=== PATIENT | male | born 1940 | race Caucasian/White ===

== ENCOUNTER 2018-06-11 17:37 | Observation (INO) | payer OTHER ==
[~2018-06-11] VITALS: Ht 190.5 cm; Wt 84.0 kg
--- OUTSIDE RECORDS SUMMARY | 2018-06-11 17:47 | XMS REPORT | Summary of Care ---
Author Author [facility] Organization [facility] Address Unknown Phone Unavailable Encounter HQ [place](FIN) [id number] Date(s): 03/25/17 - 03/25/17 [facility] [address] [place] [address]- Discharge Disposition: Home or Self Care Attending Physician: Justin Rader MD Referring Physician: Justin Rader MD Vital Signs No data available for this section Problem List No data available for this section Allergies, Adverse Reactions, Alerts Substance Reaction Severity Status NKDA Active Medications Omnipaque 300 10 mL, Route: MISC, Drug Form: SOLN, ONCE, Start date: 03/25/17 9:19:00 CDT, Sto p date: 03/25/17 9:19:00 CDT Notes: (Same as:Omnipaque 300).WASTE: F/P - Black; E - Municipal Trash Bin Start Date: 03/25/17 Stop Date: 03/25/17 Status: Completed Results No data available for this section Immunizations No data available for this section Procedures No data available for this section Social History Social History Type Response Smoking Status Never smoker; Exposure to Tobacco Smoke None; Cigarette Smoking Last 365 Days No; Reg Smoking Cessation Counseling No Assessment and Plan No data available for this section
--- OUTSIDE RECORDS SUMMARY | 2018-06-11 17:47 | XMS REPORT | Summary of Care ---
Author Author [facility] Neurosurgery [facility] Organization [facility] Neurosurgery [facility] Address Unknown Phone Unavailable Encounter HQ Kathleen(FIN) [id number] Date(s): 06/17/17 - 06/18/17 [facility] Neurosurgery [facility] [address], [address] [place] [address] [phone] Vital Signs No data available for this section Problem List Condition Effective Dates Status Health Status Informant Acute Resolved angina(Confirmed) BCC (basal cell Resolved carcinoma), ear(Confirmed) CAD (coronary artery Active disease)(Confirmed) Disorder of urinary Active tract(Confirmed) Gout(Confirmed) Active H/O Active hyperlipidemia(Confi rmed) Irregular heart Resolved beat(Confirmed) Numbness of upper Active limb(Confirmed) Incomplete rotator Resolved cuff tear(Confirmed) Cervical stenosis of Active spine(Confirmed) Allergies, Adverse Reactions, Alerts Substance Reaction Severity Status erythromycin Active Medications No data available for this section Results No data available for this section Immunizations No data available for this section Procedures Procedure Date Related Diagnosis Body Site Angioplasty1 Arthroscopy of knee Myelogram Pacemaker care Rotator cuff repair 1with 1 stent Social History Social History Type Response Smoking Status Never smoker; Exposure to Tobacco Smoke None; Cigarette Smoking Last 365 Days No; Reg Smoking Cessation Counseling No Assessment and Plan No data available for this section
--- OUTSIDE RECORDS SUMMARY | 2018-06-11 17:47 | XMS REPORT | Summary of Care ---
Author Author [facility] Neurosurgery [facility] Organization [facility] Neurosurgery [facility] Address Unknown Phone Unavailable Encounter HQ Kathleen(EULALIO) [phone] Date(s): 06/17/17 - 06/17/17 [facility]surgery [facility] [address], [address] [place] [phone] Discharge Disposition: Home or Self Care Attending Physician: Justin Rader MD Vital Signs No [...] Substance Reaction Severity Status erythromycin Active Medications tramadol 100 mg oral tablet, extended release 100 mg=1 tab, PO, QPM, # 30 tab, 1 Refill(s), called to pharmacy Start Date: 06/17/17 Status: Ordered Results No data available for this section [...]
--- OUTSIDE RECORDS SUMMARY | 2018-06-11 17:47 | XMS REPORT | Summary of Care ---
Author Author [facility] Organization [facility] Neurosurgery [facility] Address Unknown Phone Unavailable Encounter HQ Kathleen(EULALIO) [phone] Date(s): 08/28/17 - 08/28/17 [facility] Neurosurgery [facility] [address], [address] [place] [phone] Discharge Disposition: Home or Self Care Attending Physician: Mariposa Montiel MD Referring Physician: Justin Rader MD Vital Signs Most recent to 1 oldest [Reference Range]: Height 182.88 cm (08/30/17 3:49 PM) Blood Pressure 122/76 mmHg [90-140/60-90 mmHg] (08/30/17 3:49 PM) Peripheral Pulse 60 bpm Rate [60-100 bpm] (08/30/17 3:49 PM) Weight 95.455 kg (08/30/17 3:49 PM) Body Mass Index 28.54 m2 (08/30/17 3:49 PM) Problem List Condition Effective Dates Status Health [...] Reaction Severity Status erythromycin Active Medications No Known Medications Results No data available for this section Immunizations No data available for this section Procedures Procedure Date Related Diagnosis Body Site Status Angioplasty1 Completed Arthroscopy of knee Completed Myelogram Completed Pacemaker care Completed Rotator cuff repair Completed 1with 1 stent Social History Social History Type Response Smoking Status Never smoker; Exposure to Tobacco Smoke None; Cigarette Smoking Last 365 Days No; Reg Smoking Cessation Counseling No entered on: 08/30/17 Assessment and Plan No data available for this section
--- OUTSIDE RECORDS SUMMARY | 2018-06-11 17:47 | XMS REPORT | Summary of Care ---
Author Author [facility] Organization [facility] Address Unknown Phone Unavailable Encounter LANCE Wang(EULALIO) [id number] Date(s): 05/07/17 - 05/07/17 [facility] [address] [place] [address]- [phone] Discharge Disposition: Home or Self Care Attending Physician: Mariposa Montiel MD Admitting Physician: Mariposa Montiel MD Referring Physician: Mariposa Montiel MD Vital Signs 1 2 3 Most recent to oldest [Reference Range]: 190.5 cm (05/06/17 3:26 PM) Height 138/86 mmHg (05/07/17 11:30 AM) 131/80 mmHg (05/07/17 11:00 AM) 123/83 mmHg (05/07/17 9:15 AM) Blood Pressure [90-140/60-90 mmHg] 18 BRMIN (05/07/17 11:30 AM) 18 BRMIN (05/07/17 11:00 AM) 18 BRMIN (05/07/17 9:15 AM) Respiratory Rate [14-20 BRMIN] 95 kg (05/06/17 3:26 PM) Weight 26.18 m2 (05/06/17 3:26 PM) Body Mass Index Problem List Condition Effective Dates Status Health [...] Substance Reaction Severity Status erythromycin Active Medications allopurinol 300 mg oral tablet 300 mg=1 tab, PO, Daily, # 30 tab, 0 Refill(s) Start Date: 05/06/17 Status: Ordered Lactated Ringers Injection IV 1000 mL 1,000 mL, Rate: 25 ml/hr, Infuse over: 40 hr, Route: IV, Dosing Weight 95 kg, To kacy Volume: 1,000, Start date: 05/07/17 9:22:00 CDT, Duration: 30 day, 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 date : 06/06/17 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: 05/07/17 Stop Date: 05/07/17 Status: Discontinued Lipitor 10 mg oral tablet 10 mg=1 tab, PO, Bedtime, # 30 tab, 0 Refill(s) Start Date: 05/06/17 Status: Ordered LR 1000 mL INJ (ANES) Route: IV, Total Volume: 1,000, Start date: 05/07/17 10:44:00 CDT, Stop date: 11:44:00 CDT Start Date: 05/07/17 Stop Date: 05/07/17 Status: Completed tamsulosin 0.4 mg oral capsule 0.4 mg=1 cap, PO, Daily, # 30 cap, 0 Refill(s) Start Date: 05/06/17 Status: Ordered Results ELECTROLYTES Most recent to 1 oldest [Reference Range]: Sodium Lvl [135-145 140 mEq/L mEq/L] (05/07/17 8:43 AM) Potassium Lvl 4.2 mEq/L [3.5-5.1 mEq/L] (05/07/17 8:43 AM) Chloride Lvl [95-109 106 mEq/L mEq/L] (05/07/17 8:43 AM) CO2 [24-32 mEq/L] 25 mEq/L (05/07/17 8:43 AM) AGAP [10.0-20.0 13.2 mEq/L mEq/L] (05/07/17 8:43 AM) CHEM PANEL Most recent to 1 oldest [Reference Range]: Creatinine Lvl 1.30 mg/dL [0.50-1.40 mg/dL] (05/07/17 8:43 AM) eGFR 52 mL/min/1.73m2 1 *NA* (05/07/17 8:43 AM) BUN [7-22 mg/dL] 17 mg/dL (05/07/17 8:43 AM) Glucose Lvl [70-99 98 mg/dL mg/dL] (05/07/17 8:43 AM) Calcium Lvl 9.3 mg/dL [8.5-10.5 mg/dL] (05/07/17 8:43 AM) 1Result Comment: The eGFR is calculated using the CKD-EPI formula. In most young, healthy individuals the eGFR will be >90 mL/min/1.73m2. The eGFR declines with age. An eGFR of 60-89 may be normal in some populations, particularly the elderly, for whom the CKD-EPI formula has not been extensively validated. Use of the eGFR is not recommended in the following populations: Individuals with unstable creatinine concentrations, including patients and those with serious co-morbid conditions. Patients with extremes in muscle mass or diet. The data above are obtained from the National Kidney Disease Education Program ( NKDEP) which additionally recommends that when the eGFR is used in patients with extremes of body mass index for purposes of drug dosing, the eGFR should be mul tiplied by the estimated BMI. HEMATOLOGY Most recent to 1 oldest [Reference Range]: WBC [3.7-10.4 K/CMM] 6.6 K/CMM (05/07/17 8:43 AM) RBC [4.70-6.10 4.94 M/CMM M/CMM] (05/07/17 8:43 AM) Hgb [14.0-18.0 g/dL] 16.8 g/dL (05/07/17 8:43 AM) Hct [42.0-54.0 %] 48.2 % (05/07/17 8:43 AM) MCV [80.0-94.0 fL] 97.6 fL *HI* (05/07/17 8:43 AM) MCH [27.0-31.0 pg] 34.0 pg *HI* (05/07/17 8:43 AM) MCHC [32.0-36.0 34.8 g/dL g/dL] (05/07/17 8:43 AM) RDW [11.5-14.5 %] 13.7 % (05/07/17 8:43 AM) Platelet [133-450 219 K/CMM K/CMM] (05/07/17 8:43 AM) MPV [7.4-10.4 fL] 7.1 fL *LOW* (05/07/17 8:43 AM) Segs [45.0-75.0 %] 60.5 % (05/07/17 8:43 AM) Lymphocytes 24.7 % [20.0-40.0 %] (05/07/17 8:43 AM) Monocytes [2.0-12.0 8.5 % %] (05/07/17 8:43 AM) Eosinophils [0.0-4.0 4.8 % %] *HI* (05/07/17 8:43 AM) Basophils [0.0-1.0 1.5 % %] *HI* (05/07/17 8:43 AM) Segs-Bands # 4.0 K/CMM [1.5-8.1 K/CMM] (05/07/17 8:43 AM) Lymphocytes # 1.6 K/CMM [1.0-5.5 K/CMM] (05/07/17 8:43 AM) Monocytes # [0.0-0.8 0.6 K/CMM K/CMM] (05/07/17 8:43 AM) Eosinophils # 0.3 K/CMM [0.0-0.5 K/CMM] (05/07/17 8:43 AM) Basophils # [0.0-0.2 0.1 K/CMM K/CMM] (05/07/17 8:43 AM) PT [12.0-14.7 12.8 seconds seconds] (05/07/17 8:43 AM) INR [0.85-1.17] 0.96 (05/07/17 8:43 AM) PTT [22.9-35.8 27.2 seconds seconds] (05/07/17 8:43 AM) Immunizations No data available for this section Procedures Procedure Date Related Diagnosis Body Site NJX INTERLAMINAR CRV/THR 05/07/17 Angioplasty1 Arthroscopy of knee Myelogram Pacemaker care Rotator cuff repair 1with 1 stent Social History Social History Type Response Smoking Status Never smoker; Exposure to Tobacco Smoke None; Cigarette Smoking Last 365 Days No; Reg Smoking Cessation Counseling No Assessment and Plan No data available for this section
--- OUTSIDE RECORDS SUMMARY | 2018-06-11 17:48 | XMS REPORT | Summary of Care ---
Author Author [facility] Neurosurgery [facility] Organization [facility] Neurosurgery [facility] Address Unknown Phone Unavailable Encounter HQ [place](FIN) [id number] Date(s): 08/07/17 - 08/08/17 [facility] Neurosurgery [facility] [address], [address] [place] [phone] Vital Signs No data available for this [...]
--- OUTSIDE RECORDS SUMMARY | 2018-06-11 18:06 | XMS REPORT | Continuity of Care Document ---
Author Author [facility] Address Unknown Phone Unavailable Problems Problem Status Onset Date Classification Date Reported Comments Source M54.12 Active 05/03/2017 [facility] UNK Active 05/03/2017 [facility] M47.812 M54.12 Active 03/20/2017 [facility] Acute angina Resolved Problem 12/04/2017 [facility] BCC , ear(<span ID="[id number]">Confirmed</span>) Resolved Problem 12/04/2017 [facility] CAD (<span ID="[id number]">Confirmed</span>) [facility] Disorder of urinary tract Active Problem 12/04/2017 [facility] Gout Active Problem 12/04/2017 [facility] H/O hyperlipidemia Active Problem 12/04/2017 [facility] Irregular heart beat Resolved Problem 12/04/2017 [facility] Numbness of upper limb Active [facility]/04[facility] Incomplete rotator cuff tear Resolved [facility]04[facility] Cervical stenosis of spine Active Problem [facility]/04[facility]2017 [facility] Medications Medication Details Route Status Patient Instructions Ordering Provider Order Date Source 24 HR tramadol hydrochloride 100 MG Extended Release Tablet 100 mg=1 tab, PO, QPM, # 30 tab, 1 Refill(s), called to pharmacy Active 06/17/2017 [facility] LR 1000 mL INJ (ANES) Route: IV, Total Volume: 1,000, Start date: 05/07/17 10:44:00 CDT, Stop date: 05/07/17 11:44:00 CDT Inactive 05/07/2017 [facility] Calcium Chloride 0.0014 MEQ/ML / Potassium Chloride 0.004 MEQ/ML / Sodium Chloride 0.103 MEQ/ML / Sodium Lactate 0.028 MEQ/ML Injectable Solution 1,000 mL, Rate: 25 ml/hr, Infuse over: 40 hr, Route: IV, Dosing Weight 95 kg, Total Volume: 1,000, Start date: 05/07/17 9:22:00 CDT, Duration: 30 day, Stop date: 06/06/17 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 WASTE: F/P - Black; E - Municipal Trash Bin Inactive 03/25/2017 [facility] Allergies, Adverse Reactions, Alerts Substance Category Reaction Severity Reaction type Status Date Reported Comments Source erythromycin Assertion Drug allergy Active [facility] Immunizations Immunization Date Given Site Status Last Updated Comments Source Results Order Name Results Value Reference Range Date Interpretation Comments Source CHEM PANEL eGFR 52 mL/min/1.73m2 05/07/2017 Result Comment: The eGFR is calculated using the [...] from the National Kidney Disease Education Program (NKDEP) which additionally recommends that when the eGFR is used in patients with extremes of body mass index for purposes of drug dosing, the eGFR should be multiplied by the estimated BMI. [facility] CHEM PANEL Glucose Lvl 98 mg/dL 70 - 99 05/07/2017 [facility]M PANEL Sodium Lvl 140 meq/L 135 - 145 05/07/2017 [facility] CHEM PANEL Potassium Lvl 4.2 meq/L 3.5 - 5.1 05/07/2017 [facility] CHEM PANEL BUN 17 mg/dL 7 - 22 05/07/2017 [facility] CHEM PANEL Creatinine Lvl 1.30 mg/dL 0.50 - 1.40 05/07/2017 [facility] CHEM PANEL Calcium Lvl 9.3 mg/dL 8.5 - 10.5 05/07/2017 [facility] CHEM PANEL Chloride Lvl 106 meq/L 95 - 109 05/07/2017 [facility] CHEM PANEL CO2 25 meq/L 24 - 32 05/07/2017 [facility] CHEM PANEL AGAP 13.2 meq/L 10.0 - 20.0 05/07/2017 [facility] HEMATOLOGY MPV 7.1 fL 7.4 - 10.4 05/07/2017 [facility] HEMATOLOGY RDW 13.7 % 11.5 - 14.5 05/07/2017 [facility] HEMATOLOGY Platelet 219 K/CMM 133 - 450 05/07/2017 [facility] HEMATOLOGY RBC 4.94 M/CMM 4.70 - 6.10 05/07/2017 [facility] HEMATOLOGY Hgb 16.8 g/dL 14.0 - 18.0 05/07/2017 [facility] MCH 34.0 pg 27.0 - 31.0 05/07/2017 [facility] HEMATOLOGY MCHC 34.8 g/dL 32.0 - 36.0 05/07/2017 [facility] HEMATOLOGY Hct 48.2 % 42.0 - 54.0 05/07/2017 [facility] HEMATOLOGY MCV 97.6 fL 80.0 - 94.0 05/07/2017 [facility] HEMATOLOGY WBC 6.6 K/CMM 3.7 - 10.4 05/07/2017 [facility] HEMATOLOGY INR 0.96 0.85 - 1.17 05/07/2017 [facility] HEMATOLOGY PT 12.8 s 12.0 - 14.7 05/07/2017 [facility] HEMATOLOGY PTT 27.2 s 22.9 - 35.8 05/07/2017 [facility] HEMATOLOGY Lymphocytes # 1.6 K/CMM 1.0 - 5.5 05/07/2017 [facility] HEMATOLOGY Segs-Bands # 4.0 K/CMM 1.5 - 8.1 05/07/2017 [facility] HEMATOLOGY Basophils # 0.1 K/CMM 0.0 - 0.2 05/07/2017 [facility] HEMATOLOGY Monocytes # 0.6 K/CMM 0.0 - 0.8 05/07/2017 [facility] HEMATOLOGY Eosinophils # 0.3 K/CMM 0.0 - 0.5 05/07/2017 [facility] Monocytes 8.5 % 2.0 - 12.0 05/07/2017 [facility] HEMATOLOGY Eosinophils 4.8 % 0.0 - 4.0 05/07/2017 [facility] Basophils 1.5 % 0.0 - 1.0 05/07/2017 [facility] HEMATOLOGY Segs 60.5 % 45.0 - 75.0 05/07/2017 [facility] Lymphocytes 24.7 % 20.0 - 40.0 05/07/2017 [facility] Spine cervical myelogram CT Spine cervical myelogram CT Patient Name: VINCENT THOMAS : 1940; Age: 76 years Male MR: [id number] Study: Spine cervical myelogram CT 03/25/2017 9:10 AM CDT Clinical Indication: ct dlp 423 mGycm - Cervical radiculopathy; cervical spondylosis. COMPARISON: None TECHNIQUE: Multiplanar imaging of the cervical spine is performed post myelographic technique. FINDINGS: ALIGNMENT AND GENERAL ASSESSMENT: There is normal alignment of the cervical spine. The prevertebral soft tissues, atlanto-dental interspace and craniocervical junction are within normal limits. The posterior paraspinal soft tissues are normal. There is disc height loss greatest at C3-C7. Multiple posterior disc osteophyte complex. DISC SPACES: C2-C3: The disc is normal. There is no central stenosis. There is no foraminal stenosis. The facet joints are normal. C3-C4: Disc osteophyte complex. Moderate spinal stenosis. Severe left foraminal stenosis. Mild bilateral facet arthritic change. C4-C5: Disc osteophyte complex. Mild spinal stenosis. Severe left, moderate right foraminal stenosis. Mild facet arthritic change bilaterally. C5-C6: Small disc osteophyte complex. There is mild spinal stenosis. Severe bilateral foraminal stenosis. Mild facet arthritic change bilaterally. C6-C7: Small disc osteophyte complex. There is no central stenosis. Mild bilateral foraminal stenosis. Minimal facet arthritic change bilaterally. C7-T1: The disc is normal. There is no central stenosis. There is no foraminal stenosis. The facet joints are normal. IMPRESSION: 1. C3-C4 moderate spinal stenosis with severe left foraminal stenosis. 2. C4-C5 mild spinal stenosis with severe left and moderate right foraminal stenosis. 3. C5-C6 mild central stenosis with severe bilateral foraminal stenosis. 4. Multilevel disc osteophytes with facet arthritic change as described above. SL: [id number] 03/25/2017 - - Read by: Lew Owen MD Dictated Date/time: 03/25/17 10:55 Electronically Signed by: Lew Owen MD 03/25/17 11:11 FINAL REPORT [facility] Spine cervical myelogram DX Spine cervical myelogram DX Addendum: The correct fluoro time is 1 minute 58 seconds. Dose=60 mGy. Patient Name: VINCENT THOMAS : 1940; Age: 76 years y/o Male MR: [id number] Study: Spine cervical myelogram DX 03/25/2017 9:11 AM CDT Clinical Indication: - M54.12 Radiculopathy, cervical region, M47.812 Spondylosis without myelopathy or radiculopathy, cervical region. COMPARISON: None. EXAM: Lumbar Puncture, flouroscopic guidance CONSENT: The patient denied any drug allergies. The patient denied intake of any blood thinners, including Plavix and warfarin. The risks and benefits of the procedure, the risk of doing nothing, as well as alternative therapies were explained to the patient. The patient was then allowed to ask questions. The patient stated understanding and agreed to proceed. It is my judgment the patient does understand the treatment plan. FLUOROSCOPY TIME: 33 seconds TECHNIQUE AND FINDINGS: Time out procedure was performed. The lower back was prepped and draped in sterile fashion with the patient in prone position. Under fluoroscopic guidance a 22 gauge Quincke tip needle was advanced into the thecal sac at the L3-L4 interspace. 10 mL of Omnipaque 300 was injected at this point. The patient was put in a headdown position to help migrate the contrast to the cervical level. COMPLICATION: None. SL: [id number] 03/25/2017 - - Read by: Lew Owen MD Dictated Date/time: 03/25/17 12:33 Electronically Signed by: Lew Owen MD 03/25/17 12:35 FINAL REPORT - - Read by: Lew Owen MD Dictated Date/time: 03/25/17 10:52 Electronically Signed by: Lew Owen MD 03/25/17 11:11 FINAL REPORT [facility] Vital Signs Vital Sign Value Date Comments Source BMI Calculated 28.54 08/30/2017 [facility] Weight 95.455 08/30/2017 [facility] Height 182.88 cm 08/30/2017 [facility] Heart Rate 60 08/30/2017 [facility] Systolic (mm Hg) 122 08/30/2017 [facility] Diastolic (mm Hg) 76 08/30/2017 [facility] Systolic (mm Hg) 138 05/07/2017 [facility] Diastolic (mm Hg) 86 05/07/2017 [facility] Respitory Rate 18 05/07/2017 [facility] Systolic (mm Hg) 131 05/07/2017 [facility] Diastolic (mm Hg) 80 05/07/2017 [facility] Respitory Rate 18 05/07/2017 [facility] Systolic (mm Hg) 123 05/07/2017 [facility] Diastolic (mm Hg) 83 05/07/2017 [facility] Respitory Rate 18 05/07/2017 [facility] BMI Calculated 26.18 05/06/2017 [facility] Weight 95 05/06/2017 [facility] Height 190.5 cm 05/06/2017 [facility] Encounters Location Location Details Encounter Type Encounter Number Reason For Visit Attending Provider ADM Date DC Date Status Source Outpatient [id number] [facility] 03/06/2017 Active [facility] Outpatient [id number] [facility] 03/25/2017 03/26/2017 [facility] Outpatient [id number] [facility] 04/16/2017 Active [facility] Outpatient [id number] CARLOS GONZALEZ 05/01/2017 Active [facility] Outpatient [id number] CARLOS GONZALEZ 05/07/2017 [facility] [id number] Carlos Gonzalez 05/07/2017 05/07/2017 [facility] Outpatient [id number] CARLOS GONZALEZ 05/20/2017 Active [facility] Outpatient [id number] CARLOS GONZALEZ 05/22/2017 Active [facility] Outpatient [id number] CARLOS GONZALEZ 06/17/2017 Active [facility] [id number] [facility] 06/17/2017 06/18/2017 [facility] Phone Message [id number] 06/17/2017 06/19/2017 [facility] Phone Message [id number] 08/07/2017 08/09/2017 [facility] Outpatient [id number] [facility] [id number] [facility] 08/28/2017 08/29/2017 [facility] Procedures Procedure Code Date Perfomer Comments Source NJX INTERLAMINAR CRV/THR 05/07/2017 [facility] Angioplasty<sup>1</sup> [id number] with 1 stent [facility] Arthroscopy of knee [id number] [facility] Myelogram [id number] [facility] Pacemaker care [id number] [facility] Rotator cuff repair [id number] [facility] Angioplasty<sup>1</sup> [id number] with 1 stent [facility] Arthroscopy of knee [id number] [facility] Myelogram [id number] [id number]
[2018-06-11] MEDS ORDERED: ALLOPURINOL300 MG PO (18:33)
[2018-06-11] MEDS ORDERED: ASPIR 8181 MG PO (18:33)
[2018-06-11] MEDS ORDERED: ATORVASTATIN CA20 MG PO (18:33)
[2018-06-11] MEDS ORDERED: METOPROLOL SUCC25 MG PO (18:33)
[2018-06-11] MEDS ORDERED: TAMSULOSIN HCL0.4 MG PO (18:33)
[2018-06-11 18:34] VITALS: BP 131/69
[2018-06-11 18:48] LABS: BASOPHILS # (AUTO) 0.1 (0.0-0.1); BASOPHILS % 1.2 % (0.0-1.0); EOSINOPHILS # (AUTO) 0.4 (0.0-0.4); EOSINOPHILS % 6.5 % (0.0-6.0); HEMATOCRIT 46.1 % (38.2-49.6); HEMOGLOBIN 15.7 g/dL (14.0-18.0); LYMPHOCYTES % 29.9 % (18.0-39.1); MEAN CORPUSCULAR HGB CONC 34.1 g/dL (31-35); MEAN CORPUSCULAR VOLUME 99.8 fL (81-99); MONOCYTES # (AUTO) 0.6 (0.2-0.8); MONOCYTES % 9.1 % (4.4-11.3); NEUTROPHILS # (AUTO) 3.5 (2.1-6.9); NEUTROPHILS % 52.8 % (38.7-80.0); PLATELET COUNT 195 x10e3/uL (140-360); RED BLOOD COUNT 4.62 x10e6/uL (4.3-5.7); RED CELL DISTRIBUTION WIDTH 12.9 % (11.7-14.4)
[2018-06-11 19:00] LABS: INR 0.89; PROTHROMBIN TIME 12.9 seconds (11.9-14.5)
[2018-06-11 19:07] LABS: ANION GAP 10.7 mmol/L (8-16); BLOOD UREA NITROGEN 23 mg/dL (7-26); BUN/CREATININE RATIO 20 (6-25); CALCIUM 9.5 mg/dL (8.4-10.2); CARBON DIOXIDE 24 mmol/L (22-29); CHLORIDE 105 mmol/L (98-107); CREATININE, SERUM 1.14 mg/dL (0.72-1.25); EST GLOMERULAR FILTRATION RATE > 60 ML/MIN (60-); GLUCOSE 104 mg/dL (74-118); POTASSIUM 3.7 mmol/L (3.5-5.1); SODIUM 136 mmol/L (136-145)
[2018-06-11 19:09] LABS: PARTIAL THROMBOPLASTIN TIME 26.7 seconds (23.8-35.5)
[2018-06-11 20:00] VITALS: BP 124/68
[2018-06-11] MEDS: ATORVASTATIN 20 MG TAB PO SCH (20:00)
[2018-06-11] MEDS: TAMSULOSIN HCL 0.4 MG CAP PO SCH (20:00)
[2018-06-12] VITALS (9 sets, daily range): BP systolic 108–123; BP diastolic 56–71
[2018-06-12] MEDS: ALLOPURINOL 300 MG TAB PO SCH (09:00)
[2018-06-12] MEDS: ASPIRIN 81 MG CHEW TAB PO SCH ×2 (09:00→18:42)
[2018-06-12] MEDS: METOPROLOL SUCCINATE 25 MG TAB XL PO SCH (09:00)
--- NOTE | 2018-06-12 13:58 | History and Physical ---
CARDIOLOGY HISTORY AND PHYSICAL REASON FOR ADMISSION: Implantable cardioverter defibrillator upgrade. HISTORY OF PRESENT ILLNESS: This is a 77-year-old man with a prior history of nonischemic cardiomyopathy with ejection fraction of 40%, complete heart block, status post pacemaker implantation with prior episodes of pacemaker mediated tachycardia and desynchrony, coronary artery disease, status post prior percutaneous coronary intervention with a recent angiography performed in [place], which showed no obstructive disease. The patient reports progressively worsening shortness of breath associated with severe fatigue, moderate intensity associated with some occasional dizziness. The patient was admitted electively for pacemaker upgrade. REVIEW OF SYSTEMS: A 12-point review of systems was conducted and described above in HPI. PAST MEDICAL HISTORY: Nonischemic cardiomyopathy, chronic systolic congestive heart failure, complete heart block, status post pacemaker implantation, coronary artery disease, status post percutaneous coronary intervention, hypertension, hyperlipidemia. PAST SURGICAL HISTORY: Pacemaker, percutaneous coronary intervention. FAMILY HISTORY: No premature coronary artery disease or sudden cardiac . SOCIAL HISTORY: No illicit drug use, alcohol use or tobacco use. ALLERGIES: ERYTHROMYCIN. MEDICATIONS: See medication reconciliation form. PHYSICAL EXAMINATION VITALS: Temperature is 96.8, heart rate is 60, respirations are 20, blood pressure is 116/70, oxygen saturation 96% on room air. GENERAL: Well-appearing, well-built and in no apparent distress. LUNGS: Clear to auscultation. ABDOMEN: Soft and nontender. CARDIOVASCULAR: Regular rate and rhythm. No murmurs. NEUROLOGIC: No focal deficits noted. SKIN: Warm, dry and intact. PSYCHIATRIC: Normal mood and affect. HEENT: Head is normocephalic and atraumatic. Oropharynx clear. Mucous membranes are moist. LABORATORY DATA: Reviewed. IMAGING DATA: None. MEDICATIONS: Reviewed. IMPRESSION 1. Mvugu-re-nwppufx systolic congestive heart failure: Will add low-dose lisinopril. Continue long-acting metoprolol. The patient will go to an upgrade for cardiac resynchronization. 2. Hypertension: The patient's blood pressure is well controlled on current regimen. 3. Percutaneous coronary intervention and coronary artery disease: The patient has no symptoms of cardiac chest pain, and has recent cardiac catheterization with no obstructive disease. Job#: [id number] IA
[2018-06-12] MEDS ORDERED: MIDAZOLAM HCL 2 MG/2 ML VIAL ONE ×2 (16:57→18:30)
[2018-06-12] MEDS ORDERED: FENTANYL CITRATE/PF 100MCG/2 ML INJ ONE (16:58)
[2018-06-12] MEDS ORDERED: LIDOCAINE HCL 2% LOCAL 20 ML VIAL ONE (16:58)
[2018-06-12] MEDS ORDERED: BACITRACIN 50,000 UNIT VIAL ONE (16:58)
[2018-06-12] MEDS ORDERED: VANCOMYCIN 1GM/NS 250 ML 250 ML ONE (16:59)
[2018-06-12] MEDS ORDERED: SODIUM CHLORIDE 0.9% 1000ML 2,000 ML ONE (16:59)
[2018-06-12] MEDS ORDERED: SODIUM CHLORIDE 0.9% 500ML 500 ML ONE (16:59)
[2018-06-12] MEDS ORDERED: MORPHINE SULFATE 2 MG/ML SYR IV PRN (20:00)
[2018-06-12] MEDS: TAMSULOSIN HCL 0.4 MG CAP PO SCH (20:37)
[2018-06-12] MEDS: ATORVASTATIN 20 MG TAB PO SCH (20:37)
[2018-06-12] MEDS: ACETAMINOPHEN/CODEINE 300MG - 30MG TAB PO PRN (20:41)
--- NOTE | 2018-06-12 20:41 | Diagnostic Imaging Report ---
EXAMINATION: CHEST SINGLE (PORTABLE) INDICATION: ^POST BIVENTRICULAR PM PLACEMENT ^[id number] ^2004 ^Y COMPARISON: Left chest wall triple lead cardiac device in place. FINDINGS: AP view TUBES and LINES: None. LUNGS: Lungs are well inflated. Mild central vascular congestion. There is no evidence of pneumonia or pulmonary edema. PLEURA: No pleural effusion or pneumothorax. HEART AND MEDIASTINUM: The cardiomediastinal silhouette is unremarkable. Aorta is tortuous. BONES AND SOFT TISSUES: No acute osseous lesion. Soft tissues are unremarkable. UPPER ABDOMEN: No free air under the diaphragm. IMPRESSION: Status post triple lead left chest wall cardiac device placement. No visible pneumothorax. Mild central vascular congestion. Signed by: Dr. Subhash Bazzi MD on 06/12/2018 8:38 PM
[2018-06-13] VITALS: BP_SYST 101; BP_SYST 125; BP_DIAS 64; BP_DIAS 79
[2018-06-13 04:00] VITALS: BP 113/58
[2018-06-13] MEDS: ACETAMINOPHEN/CODEINE 300MG - 30MG TAB PO PRN (04:14)
[2018-06-13] MEDS ORDERED: ULTRAM 50MG50 MG PO (05:42)
[2018-06-13] MEDS ORDERED: MINOCYCLINE HCL50 MG PO (05:42)
[2018-06-13 08:00] VITALS: BP_SYST 111; BP_SYST 113; BP_DIAS 58; BP_DIAS 65
--- NOTE | 2018-06-13 08:16 | Consultation ---
DATE OF CONSULTATION: June 11, 2018 REASON FOR CONSULT: Cardiomyopathy. HISTORY OF PRESENT ILLNESS: This is a 77-year-old gentleman with history of complete heart block, status post dual-chamber pacemaker about 5 years ago. Patient was doing well up until 2 or 3 months ago when he started feeling short of breath with minimal activity. He is feeling tired and weak. He is pacemaker dependent. His ejection fraction has declined to 40%. He is congestive heart failure class 3. We are consulted to consider upgrading the device. REVIEW OF SYSTEMS: CONSTITUTIONAL: As per HPI. CARDIOVASCULAR: As per HPI. RESPIRATORY: Negative. GASTROINTESTINAL: Negative. MUSCULOSKELETAL: Negative. GENITOURINARY: Negative. NEUROLOGICAL: Negative. All other symptoms negative. PAST MEDICAL HISTORY: Cardiomyopathy, complete heart block. PAST SURGICAL HISTORY: Pacemaker. FAMILY HISTORY: No premature coronary artery disease. SOCIAL HISTORY: Denies alcohol or smoking. PHYSICAL EXAMINATION: VITAL SIGNS: Blood pressure 148/60, pulse 70, respiration 20, O2 sat is 98%. GENERAL: In no acute distress. HEENT: Moist mucous membranes. CARDIOVASCULAR: Regular. RESPIRATORY: Clear. ABDOMEN: Soft, nontender. MUSCULOSKELETAL: 2+ distal pulses. NEUROLOGICAL: No focal deficit. PSYCHIATRY: Normal thought process. EKG: Sinus, ventricular pacing. IMPRESSION: 1. 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 2. 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 3. Complete heart block. 4. 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 RECOMMENDATIONS: I had a long discussion with the patient. 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 This was discussed in detail, procedure benefits and risks. Patient voices understanding and wishes to proceed. Will plan for an upgrade to biventricular pacemaker placement. Job#: [id number]
--- NOTE | 2018-06-13 08:22 | Operative Report ---
DATE OF PROCEDURE: June 12, 2018 PREPROCEDURE DIAGNOSES 1. Chronic dilated cardiomyopathy with ejection fraction 40%. 2. Complete heart block, pacemaker dependent. 3. Presence of dual-chamber pacemaker. 4. Right ventricular pacing-induced cardiomyopathy. POSTPROCEDURE DIAGNOSES 1. Chronic dilated cardiomyopathy with ejection fraction 40%. 2. Complete heart block, pacemaker dependent. 3. Presence of dual-chamber pacemaker. 4. Right ventricular pacing-induced cardiomyopathy. ESTIMATED BLOOD LOSS: 5 mL. COMPLICATIONS: None. PROCEDURES PERFORMED 1. Upgrade to biventricular pacemaker. 2. Moderate sedation. Moderate conscious sedation was provided under my direct supervision by sedation-trained nurse. Sedation approximate time 30 minutes with Versed and fentanyl. There were no complications. DESCRIPTION OF PROCEDURE: After informed consent was obtained, the patient was brought to the electrophysiology laboratory in a fasting, nonsedated state. The area over his chest was prepped and draped in the usual sterile fashion. Moderate sedation and prophylactic antibiotic were given. One percent lidocaine was used as local anesthetic. A 3-cm skin incision was made over the previous pacemaker. Electrocautery and sharp and blunt dissection were used to reach the previous device. This device was freed out of the pocket. Vascular access was obtained times 1 in the left axillary vein using the modified Seldinger technique. A 9-Lithuanian sheath was placed. The coronary sinus was cannulated using AL2 catheter and Wholey wire. Coronary sinus angiogram demonstrated a good posterolateral branch. The lead was advanced there. Pacing threshold was 0.8 at 0.5, impedance 1000. The sheath was removed from the body. The lead was secured to the fascia using #0 silk. The pocket was irrigated with antibiotic solution using the pulse wall crane operator. Hemostasis was meticulous. Lead was connected to the device as well as the atrial and ventricular leads also connected to the new device. An entire new bi-V system was placed in the pocket. The incision was closed using Vicryl and Dermabond. The patient tolerated the procedure well. The procedure was deemed complete. SUMMARY OF HARDWARE IMPLANTED THIS TIME: The new pacemaker is [employer] model #U128, [id number]. The new left ventricular lead is [employer] 4674, [id number]. The chronic right atrial and right ventricular leads were used for this new device, and they were [employer]. IMPRESSION: Successful upgrade to biventricular pacemaker via left axillary vein. PLAN 1. Routine postop monitoring on telemetry bed. 2. Chest x-ray. 3. Follow up in 2 weeks. Job#: [id number]
[2018-06-13] MEDS: ASPIRIN 81 MG CHEW TAB PO SCH (08:39)
[2018-06-13] MEDS: METOPROLOL SUCCINATE 25 MG TAB XL PO SCH (08:39)
[2018-06-13] MEDS: ALLOPURINOL 300 MG TAB PO SCH (08:39)
[2018-06-13 11:57] VITALS: BP 132/74
[2018-06-13] MEDS ORDERED: ATORVASTATIN 40 MG TAB PO SCH (21:00)
== END 2018-06-13 13:10 | disposition home or self-care (01) ==
LOC: MED/SURG 17:44 → UNDOADMOB 17:44 → MED/SURG 18:03
PROVIDERS: ADMIT Internal Medicine Interventional Cardiology; ATTEND Internal Medicine Interventional Cardiology
DX: Z45.018 Encounter for adjustment and management of other part of cardiac pacemaker (principal); I11.0 Hypertensive heart disease with heart failure; I50.23 Acute on chronic systolic (congestive) heart failure; I25.10 Atherosclerotic heart disease of native coronary artery without angina pectoris; I44.2 Atrioventricular block, complete
CPT/HCPCS: 33208; 33225; 33233; 36415; 71045; 80048; 85025; 85610; 85730; C1769; C1887; C1900; C2621; G0378 ×3; J2001; J2250; J2270; J3370; J7030; J7040; 33224; 33229

== ENCOUNTER → 2018-11-24 | Day surgery (SDC) | payer OTHER ==
[~2018-11-24] VITALS: Ht 190.5 cm; Wt 95.3 kg
[~2018-11-24] MED LIST: ALLOPURINOL300 MG PO; ASPIR 8181 MG PO; ATORVASTATIN CA20 MG PO; FENTANYL CITRATE/PF 100MCG/2 ML INJ ONE; HEPARIN SOD/SOD CHLORIDE 2,000 ML ONE; IOPAMIDOL 370 MG/ML 200 ML INFUS..BTL INJ ONE; LIDOCAINE HCL 2% LOCAL 20 ML VIAL ONE; METOPROLOL SUCC25 MG PO; MIDAZOLAM HCL 2 MG/2 ML VIAL ONE; MINOCYCLINE HCL50 MG PO; SODIUM CHLORIDE 0.9% 1000ML 1,000 ML ONE; TAMSULOSIN HCL0.4 MG PO; ULTRAM 50MG50 MG PO
--- OUTSIDE RECORDS SUMMARY | 2018-11-24 10:13 | XMS REPORT ---
Author [facility] Address Unknown Phone Unavailable Care Team Providers Care Bench Repair Technician Name Role Phone ALBIN RINCON Unavailable Unavailable Problems This patient has no known problems. Allergies, Adverse Reactions, Alerts This patient has no known allergies or adverse reactions. Medications This patient has no known medications. Results Test Description Test Time Test Comments Text Results Atomic Results Result Comments CHEST SINGLE (PORTABLE) 2018-06-12 20:37:00 [place] [address] Patient Name: VINCENT THOMAS MR #: [id number] : 1940 Age/Sex: 77/M Req #: [id number] Adm Physician: ALBIN RINCON MD Ordered by: LISA SHAFER MD Report #: [id number] Location: MED/SURG Room/Bed: [facility] Procedure: [id number] DX/CHEST SINGLE (PORTABLE) Exam Date: 06/12/18 Exam Time: 2004 REPORT STATUS: Signed EXAMINATION: CHEST SINGLE (PORTABLE) INDICATION: POST BIVENTRICULAR PM PLACEMENT [id number] Y COMPARISON: Left chest wall triple lead cardiac device in place. FINDINGS: AP view TUBES and LINES: None. LUNGS: Lungs are well inflated. Mild central vascular congestion. There is no evidence of pneumonia or pulmonary edema. PLEURA: No pleural effusion or pneumothorax. HEART AND MEDIASTINUM: The cardiomediastinal silhouette is unremarkable. Aorta is tortuous. BONES AND SOFT TISSUES: No acute osseous lesion. Soft tissues are unremarkable. UPPER ABDOMEN: No free air under the diaphragm. IMPRESSION: Status post triple lead left chest wall cardiac device placement. No visible pneumothorax. Mild central vascular congestion. Signed by: Dr. Subhash Soliman MD on 06/12/2018 8:38 PM Dictated By: SUBHASH SOLIMAN MD 37 Transcribed By: JONNY on 06/12/182037 COPY TO: LISA SHAFER MD
[2018-11-24 10:48] VITALS: BP 124/80
[2018-11-24 11:05] LABS: BASOPHILS # (AUTO) 0.1 (0.0-0.1); EOSINOPHILS # (AUTO) 0.2 (0.0-0.4); EOSINOPHILS % 3.3 % (0.0-6.0); HEMATOCRIT 48.4 % (38.2-49.6); HEMOGLOBIN 16.1 g/dL (14.0-18.0); LYMPHOCYTES # (AUTO) 1.7 (1.0-3.2); LYMPHOCYTES % 27.9 % (18.0-39.1); MEAN CORPUSCULAR HEMOGLOBIN 33.2 pg (28-32); MEAN CORPUSCULAR HGB CONC 33.3 g/dL (31-35); MEAN CORPUSCULAR VOLUME 99.8 fL (81-99); MONOCYTES # (AUTO) 0.5 (0.2-0.8); NEUTROPHILS # (AUTO) 3.6 (2.1-6.9); NEUTROPHILS % 59.6 % (38.7-80.0); PLATELET COUNT 160 x10e3/uL (140-360); RED BLOOD COUNT 4.85 x10e6/uL (4.3-5.7); RED CELL DISTRIBUTION WIDTH 13.1 % (11.7-14.4)
[2018-11-24 11:18] LABS: INR 0.92; PROTHROMBIN TIME 12.8 seconds (11.9-14.5)
[2018-11-24 11:28] LABS: ALBUMIN 3.9 g/dL (3.5-5.0); ALBUMIN/GLOBULIN RATIO 1.4 (0.8-2.0); ANION GAP 12.2 mmol/L (8-16); CREATININE, SERUM 1.32 mg/dL (0.72-1.25); POTASSIUM 5.2 mmol/L (3.5-5.1)
[2018-11-24 13:05] VITALS: BP 117/67
[2018-11-24 13:20] VITALS: BP 111/63
[2018-11-24 13:35] VITALS: BP 103/64
[2018-11-24 13:50] VITALS: BP 101/67
[2018-11-24 14:06] VITALS: BP 107/62
--- NOTE | 2018-11-24 19:58 | Operative Report ---
DATE OF PROCEDURE: 11/24/2018 SURGEON: Kingston Morejon MD INDICATION: Coronary artery disease, abnormal stress test. PROCEDURES PERFORMED: 1. Left heart catheterization, selective coronary angiography. 2. Deployment of right wrist TR band. COMPLICATIONS: None. RECOMMENDATIONS: Medical therapy. DESCRIPTION OF PROCEDURE: Access obtained in the right radial artery. A 5-Sinhala sheath was placed. Diagnostic coronary angiogram revealed patent stent in the left anterior descending artery, diffuse 30% to 50% stenosis in all coronary vessels, ostial LAD 50%, mid RCA 50%. No intervention was deemed necessary. Right wrist guide and sheath were removed. TR band applied. The patient discharged home same day. Kingston Morejon MD KSB/MODL /[id number]
== END | disposition home or self-care (01) ==
LOC: CATH LAB 10:10
PROVIDERS: ATTEND Internal Medicine Interventional Cardiology
DX: I25.118 Atherosclerotic heart disease of native coronary artery with other forms of angina pectoris (principal); Z95.5 Presence of coronary angioplasty implant and graft; R94.39 Abnormal result of other cardiovascular function study; E78.5 Hyperlipidemia, unspecified; I87.2 Venous insufficiency (chronic) (peripheral); Z95.0 Presence of cardiac pacemaker
CPT/HCPCS: 36415; 80053; 85025; 85610; 93454; C1769 ×2; C1887; J2001; J2250; J7030; Q9967; 93458

== ENCOUNTER 2020-12-18 04:05 | Observation (INO) | payer MEDICARE ==
[~2020-12-18] VITALS: Ht 190.5 cm; Wt 98.4 kg
[~2020-12-18 04:05] MED LIST changes: -FENTANYL CITRATE/PF 100MCG/2 ML INJ ONE; -HEPARIN SOD/SOD CHLORIDE 2,000 ML ONE; -IOPAMIDOL 370 MG/ML 200 ML INFUS..BTL INJ ONE; -LIDOCAINE HCL 2% LOCAL 20 ML VIAL ONE; -MIDAZOLAM HCL 2 MG/2 ML VIAL ONE; -SODIUM CHLORIDE 0.9% 1000ML 1,000 ML ONE
[2020-12-18] MEDS ORDERED: ONDANSETRON HCL INJ 2MG/ML 2ML 2 MG/ML VIAL IV STA (04:11)
[2020-12-18] MEDS ORDERED: MORPHINE SULFATE INJ 4 MG/ML INJ 1ML IV STA (04:11)
[2020-12-18] MEDS ORDERED: ASPIRIN 81 MG CHEW TAB PO ONE (04:15)
[2020-12-18 04:33] LABS: BASOPHILS # (AUTO) 0.1 (0.0-0.1); BASOPHILS % 0.8 % (0.0-1.0); EOSINOPHILS # (AUTO) 0.2 (0.0-0.4); EOSINOPHILS % 3.6 % (0.0-6.0); HEMATOCRIT 49.8 % (38.2-49.6); HEMOGLOBIN 17.1 g/dL (14.0-18.0); LYMPHOCYTES # (AUTO) 1.7 (1.0-3.2); LYMPHOCYTES % 25.5 % (18.0-39.1); MEAN CORPUSCULAR HEMOGLOBIN 33.8 pg (28-32); MEAN CORPUSCULAR HGB CONC 34.3 g/dL (31-35); MEAN CORPUSCULAR VOLUME 98.4 fL (81-99); MONOCYTES # (AUTO) 0.6 (0.2-0.8); MONOCYTES % 9.1 % (4.4-11.3); NEUTROPHILS # (AUTO) 3.9 (2.1-6.9); NEUTROPHILS % 60.7 % (38.7-80.0); PLATELET COUNT 173 x10e3/uL (140-360); RED BLOOD COUNT 5.06 x10e6/uL (4.3-5.7); RED CELL DISTRIBUTION WIDTH 13.1 % (11.7-14.4)
[2020-12-18 04:59] LABS: ALBUMIN 4.3 g/dL (3.5-5.0); ALBUMIN/GLOBULIN RATIO 1.6 (0.8-2.0); ANION GAP 16.1 mmol/L (8-16); CALCIUM 9.2 mg/dL (8.4-10.2); CREATININE, SERUM 1.38 mg/dL (0.72-1.25); POTASSIUM 4.1 mmol/L (3.5-5.1)
[2020-12-18 05:05] LABS: CREATINE KINASE MB 1.6 ng/mL (0-5.0)
[2020-12-18 05:43] LABS: AMYLASE 53 U/L (25-125); LIPASE 66 U/L (8-78)
[2020-12-18] MEDS ORDERED: MORPHINE SULFATE INJ 2 MG/ML SYR IV PRN (06:30)
[2020-12-18] MEDS ORDERED: ONDANSETRON HCL INJ 2MG/ML 2ML 2 MG/ML VIAL IV PRN (06:30)
[2020-12-18] MEDS ORDERED: NITROGLYCERIN 0.4 MG SUBL SL PRN (06:30)
[2020-12-18] MEDS: ASPIRIN 81 MG ENTERIC COATED PO SCH ×2 (06:43→08:14)
[2020-12-18] MEDS: CLOPIDOGREL BISULFATE 75 MG TAB PO SCH ×2 (06:43→08:14)
[2020-12-18] MEDS ORDERED: TRAMADOL HCL 50 MG TAB PO PRN (08:00)
[2020-12-18 08:23] LABS: CHOL/HDL RATIO 4.6 (3.9-4.7)
[2020-12-18] MEDS: METOPROLOL SUCCINATE 25 MG TAB XL PO SCH (08:39)
[2020-12-18] MEDS: ALLOPURINOL 300 MG TAB PO SCH (09:00)
[2020-12-18 12:23] LABS: CREATINE KINASE 45 IU/L (30-200)
[2020-12-18 15:30] VITALS: BP 112/73
[2020-12-18] MEDS: LACTATED RINGER'S 1,000 ML INJ SCH (15:49)
[2020-12-18 16:12] VITALS: BP 136/89
[2020-12-18] MEDS ORDERED: FUROSEMIDE40 MG PO (18:06)
[2020-12-18] MEDS ORDERED: ISOSORBIDE MONO30 MG PO (18:06)
[2020-12-18] MEDS ORDERED: CLOPIDOGREL75 MG PO (18:06)
[2020-12-18] MEDS ORDERED: FINASTERIDE5 MG PO (18:06)
[2020-12-18 20:16] VITALS: BP 122/76
[2020-12-18] MEDS: ATORVASTATIN 20 MG TAB PO SCH (20:39)
[2020-12-18] MEDS: TAMSULOSIN HCL 0.4 MG CAP PO SCH (20:39)
[2020-12-18 21:04] VITALS: BP 122/76
[2020-12-18 21:50] LABS: CREATINE KINASE 38 IU/L (30-200)
[2020-12-18 23:10] VITALS: BP 122/69
[2020-12-19] VITALS (17 sets, daily range): BP systolic 110–151; BP diastolic 63–80
[2020-12-19 05:24] LABS: BASOPHILS # (AUTO) 0.1 (0.0-0.1); BASOPHILS % 0.8 % (0.0-1.0); EOSINOPHILS # (AUTO) 0.3 (0.0-0.4); EOSINOPHILS % 4.2 % (0.0-6.0); HEMOGLOBIN 15.1 g/dL (14.0-18.0); LYMPHOCYTES # (AUTO) 1.9 (1.0-3.2); LYMPHOCYTES % 29.8 % (18.0-39.1); MEAN CORPUSCULAR HEMOGLOBIN 33.5 pg (28-32); MEAN CORPUSCULAR HGB CONC 33.6 g/dL (31-35); MEAN CORPUSCULAR VOLUME 99.8 fL (81-99); MONOCYTES # (AUTO) 0.6 (0.2-0.8); MONOCYTES % 10.3 % (4.4-11.3); NEUTROPHILS # (AUTO) 3.4 (2.1-6.9); NEUTROPHILS % 54.6 % (38.7-80.0); PLATELET COUNT 146 x10e3/uL (140-360); RED BLOOD COUNT 4.51 x10e6/uL (4.3-5.7); RED CELL DISTRIBUTION WIDTH 13.1 % (11.7-14.4)
[2020-12-19] MEDS: LACTATED RINGER'S 1,000 ML INJ SCH ×2 (06:08→10:40)
[2020-12-19 06:34] LABS: ALBUMIN 3.3 g/dL (3.5-5.0); ALBUMIN/GLOBULIN RATIO 1.3 (0.8-2.0); ANION GAP 15.2 mmol/L (8-16); CALCIUM 8.4 mg/dL (8.4-10.2); CREATININE, SERUM 1.18 mg/dL (0.72-1.25); POTASSIUM 4.2 mmol/L (3.5-5.1)
[2020-12-19 06:51] LABS: CREATINE KINASE 42 IU/L (30-200)
[2020-12-19] MEDS ORDERED: IOPAMIDOL 370 MG/ML 200 ML INFUS..BTL INJ ONE (11:44)
[2020-12-19] MEDS ORDERED: LIDOCAINE HCL 2% LOCAL 20 ML VIAL ONE (11:44)
[2020-12-19] MEDS ORDERED: HEPARIN SOD/SOD CHLORIDE 2,000 ML ONE (11:44)
[2020-12-19] MEDS ORDERED: MIDAZOLAM HCL 2 MG/2 ML VIAL ONE (11:47)
[2020-12-19] MEDS ORDERED: FENTANYL CITRATE/PF 100MCG/2 ML INJ ONE (11:47)
[2020-12-19] MEDS ORDERED: SODIUM CHLORIDE 0.9% 1000ML 1,000 ML ONE (11:48)
[2020-12-19] MEDS: ASPIRIN 81 MG ENTERIC COATED PO SCH (14:56)
[2020-12-19] MEDS: PANTOPRAZOLE SOD 40 MG TABEC PO SCH (14:56)
[2020-12-19] MEDS: CLOPIDOGREL BISULFATE 75 MG TAB PO SCH (14:56)
[2020-12-19] MEDS: METOPROLOL SUCCINATE 25 MG TAB XL PO SCH (14:57)
[2020-12-19] MEDS: ALLOPURINOL 300 MG TAB PO SCH (14:57)
[2020-12-19] MEDS: ATORVASTATIN 20 MG TAB PO SCH (21:23)
[2020-12-19] MEDS: TAMSULOSIN HCL 0.4 MG CAP PO SCH (21:23)
[2020-12-20] MEDS: LACTATED RINGER'S 1,000 ML INJ SCH (01:30)
[2020-12-20 04:28] VITALS: BP 115/65
[2020-12-20] MEDS ORDERED: BISACODYL 10 MG SUPP PR PRN (07:00)
[2020-12-20 08:23] VITALS: BP 99/70
[2020-12-20 08:50] VITALS: BP 99/70
[2020-12-20] MEDS ORDERED: RANEXA500 MG PO (09:27)
[2020-12-20] MEDS: ALLOPURINOL 300 MG TAB PO SCH (09:37)
[2020-12-20] MEDS: PANTOPRAZOLE SOD 40 MG TABEC PO SCH (09:37)
[2020-12-20] MEDS: CLOPIDOGREL BISULFATE 75 MG TAB PO SCH (09:37)
[2020-12-20] MEDS: ASPIRIN 81 MG ENTERIC COATED PO SCH (09:37)
[2020-12-20] MEDS: METOPROLOL SUCCINATE 25 MG TAB XL PO SCH (09:38)
[2020-12-20] MEDS ORDERED: ONDANSETRON HCL 4 MG ORAL DISINTEGRATING TAB PO PRN (10:15)
== END 2020-12-20 10:09 | disposition home or self-care (01) ==
LOC: ER 04:11 → ERHOLD 06:34 → MED/SURG2 15:11
PROVIDERS: ADMIT Family Medicine; ATTEND Family Medicine
DX: I25.110 Atherosclerotic heart disease of native coronary artery with unstable angina pectoris (principal); Z95.0 Presence of cardiac pacemaker; E78.5 Hyperlipidemia, unspecified; I10 Essential (primary) hypertension
CPT/HCPCS: 36415 ×2; 71045; 76937; 80053 ×2; 80061 ×2; 82150; 82550 ×2; 82553 ×2; 83690; 83880; 84443; 84484 ×2; 85025 ×2; 85379; 93005; 93306; 93458; 99284; C1769 ×2; C1887 ×2; G0378 ×3; J2001; J2250; J2270; J2405; J3010; J7030; J7121 ×3; Q9967; S0164 ×2; 99152; 99153

== ENCOUNTER 2021-04-01 04:55 | Inpatient (IN) | payer MEDICARE ==
[~2021-04-01] VITALS: Ht 190.5 cm; Wt 97.5 kg
[~2021-04-01 04:55] MED LIST changes: +CLOPIDOGREL75 MG PO; +FINASTERIDE5 MG PO; +FUROSEMIDE40 MG PO; +ISOSORBIDE MONO30 MG PO; +RANEXA500 MG PO
[2021-04-01 05:21] LABS: BASOPHILS # (AUTO) 0.1 (0.0-0.1); BASOPHILS % 0.4 % (0.0-1.0); HEMATOCRIT 49.3 % (38.2-49.6); HEMOGLOBIN 16.5 g/dL (14.0-18.0); LYMPHOCYTES # (AUTO) 0.8 (1.0-3.2); LYMPHOCYTES % 6.5 % (18.0-39.1); MEAN CORPUSCULAR HEMOGLOBIN 33.4 pg (28-32); MEAN CORPUSCULAR HGB CONC 33.5 g/dL (31-35); MEAN CORPUSCULAR VOLUME 99.8 fL (81-99); MONOCYTES # (AUTO) 0.3 (0.2-0.8); MONOCYTES % 2.7 % (4.4-11.3); NEUTROPHILS # (AUTO) 10.3 (2.1-6.9); NEUTROPHILS % 89.8 % (38.7-80.0); PLATELET COUNT 192 x10e3/uL (140-360); RED BLOOD COUNT 4.94 x10e6/uL (4.3-5.7); RED CELL DISTRIBUTION WIDTH 12.9 % (11.7-14.4)
[2021-04-01] MEDS ORDERED: MORPHINE SULFATE INJ 4 MG/ML INJ 1ML IV STA (05:35)
[2021-04-01] MEDS ORDERED: ONDANSETRON HCL INJ 2MG/ML 2ML 2 MG/ML VIAL IV STA ×2 (05:35)
[2021-04-01 05:36] LABS: ALBUMIN 4.2 g/dL (3.5-5.0); ALBUMIN/GLOBULIN RATIO 1.3 (0.8-2.0); ANION GAP 16.1 mmol/L (8-16); CALCIUM 9.5 mg/dL (8.4-10.2); CREATININE, SERUM 1.38 mg/dL (0.72-1.25); POTASSIUM 4.1 mmol/L (3.5-5.1)
[2021-04-01 05:43] LABS: CREATINE KINASE MB 1.4 ng/mL (0-5.0)
[2021-04-01] MEDS: MORPHINE SULFATE INJ 4 MG/ML INJ 1ML IV PRN ×3 (05:52→20:48)
[2021-04-01] MEDS ORDERED: SODIUM CHLORIDE 0.9% 1000ML 1,000 ML IV STA (05:56)
[2021-04-01] MEDS ORDERED: IOPAMIDOL 370 MG/ML 200 ML INFUS..BTL INJ ONE (06:25)
[2021-04-01] MEDS ORDERED: SODIUM CHLORIDE 0.9% 100 ML ONE (06:25)
[2021-04-01 06:34] LABS: AMYLASE 51 U/L (25-125); LIPASE 56 U/L (8-78)
[2021-04-01 06:44] LABS: INR 1.13; PARTIAL THROMBOPLASTIN TIME 28.3 seconds (23.8-35.5); PROTHROMBIN TIME 14.7 seconds (11.9-14.5)
[2021-04-01] MEDS: ASPIRIN 81 MG ENTERIC COATED PO SCH (09:22)
[2021-04-01] MEDS: PIPERACILLIN/TAZOBACTAM 3.375 GM in SODIUM CHLORIDE 0.9% 50ML 50 ML IV SCH ×3 (09:22→17:54)
[2021-04-01] MEDS: ONDANSETRON HCL INJ 2MG/ML 2ML 2 MG/ML VIAL IV PRN (11:35)
[2021-04-01 13:00] VITALS: BP 134/76
[2021-04-01 13:30] VITALS: BP 134/76
[2021-04-01] MEDS ORDERED: METOPROLOL SUCC25 MG PO (13:31)
[2021-04-01 14:29] LABS: CREATINE KINASE MB 1.3 ng/mL (0-5.0)
[2021-04-01 16:33] VITALS: BP 116/81
[2021-04-01 20:26] VITALS: BP 130/73
[2021-04-01] MEDS: TAMSULOSIN HCL 0.4 MG CAP PO SCH (20:39)
[2021-04-01] MEDS: FINASTERIDE 5 MG TAB PO SCH (20:39)
[2021-04-01] MEDS: METOPROLOL SUCCINATE 25 MG TAB XL PO SCH (20:39)
[2021-04-01] MEDS: ATORVASTATIN 20 MG TAB PO SCH (20:39)
[2021-04-01 21:00] VITALS: BP 130/73
[2021-04-02] VITALS (8 sets, daily range): BP systolic 96–123; BP diastolic 60–76
[2021-04-02] MEDS: PIPERACILLIN/TAZOBACTAM 3.375 GM in SODIUM CHLORIDE 0.9% 50ML 50 ML IV SCH ×5 (00:10→17:08)
[2021-04-02 07:32] LABS: BASOPHILS # (AUTO) 0.1 (0.0-0.1); BASOPHILS % 0.8 % (0.0-1.0); EOSINOPHILS # (AUTO) 0.2 (0.0-0.4); EOSINOPHILS % 2.5 % (0.0-6.0); HEMATOCRIT 42.8 % (38.2-49.6); LYMPHOCYTES # (AUTO) 1.6 (1.0-3.2); LYMPHOCYTES % 21.5 % (18.0-39.1); MEAN CORPUSCULAR HEMOGLOBIN 34.9 pg (28-32); MEAN CORPUSCULAR VOLUME 99.5 fL (81-99); MONOCYTES # (AUTO) 0.6 (0.2-0.8); MONOCYTES % 8.4 % (4.4-11.3); NEUTROPHILS % 66.5 % (38.7-80.0); PLATELET COUNT 142 x10e3/uL (140-360); RED CELL DISTRIBUTION WIDTH 13.4 % (11.7-14.4)
[2021-04-02 07:45] LABS: ALBUMIN 3.3 g/dL (3.5-5.0); ALBUMIN/GLOBULIN RATIO 1.2 (0.8-2.0); ANION GAP 13.8 mmol/L (8-16); CALCIUM 8.5 mg/dL (8.4-10.2); CHOL/HDL RATIO 3.4 (3.9-4.7); CREATININE, SERUM 1.24 mg/dL (0.72-1.25); POTASSIUM 3.8 mmol/L (3.5-5.1)
[2021-04-02 08:31] LABS: CREATINE KINASE MB 1.1 ng/mL (0-5.0)
[2021-04-02] MEDS: ASPIRIN 81 MG ENTERIC COATED PO SCH ×2 (08:46→09:00)
[2021-04-02] MEDS: METOPROLOL SUCCINATE 25 MG TAB XL PO SCH (08:46)
[2021-04-02] MEDS ORDERED: CLOPIDOGREL BISULFATE 75 MG TAB PO ONE (17:00)
[2021-04-02] MEDS: MORPHINE SULFATE INJ 4 MG/ML INJ 1ML IV PRN (18:17)
[2021-04-02] MEDS: ONDANSETRON HCL INJ 2MG/ML 2ML 2 MG/ML VIAL IV PRN (18:17)
[2021-04-02] MEDS: FINASTERIDE 5 MG TAB PO SCH (20:48)
[2021-04-02] MEDS: ATORVASTATIN 20 MG TAB PO SCH (20:48)
[2021-04-02] MEDS: TAMSULOSIN HCL 0.4 MG CAP PO SCH (20:48)
[2021-04-03] VITALS (8 sets, daily range): BP systolic 103–143; BP diastolic 64–76
[2021-04-03] MEDS: PIPERACILLIN/TAZOBACTAM 3.375 GM in SODIUM CHLORIDE 0.9% 50ML 50 ML IV SCH ×4 (00:22→17:51)
[2021-04-03] MEDS ORDERED: BUPIVACAINE 0.25% 30ML SDV ONE (07:47)
[2021-04-03] MEDS ORDERED: ONDANSETRON HCL INJ 2MG/ML 2ML 2 MG/ML VIAL IV PRN (08:45)
[2021-04-03] MEDS: ONDANSETRON HCL INJ 2MG/ML 2ML 2 MG/ML VIAL IV PRN (08:55)
[2021-04-03] MEDS: ASPIRIN 81 MG ENTERIC COATED PO SCH (09:00)
[2021-04-03] MEDS ORDERED: MEPERIDINE HCL INJ 25 MG/ML VIAL ONE ×2 (09:02→09:21)
[2021-04-03] MEDS ORDERED: FENTANYL CITRATE/PF 100MCG/2 ML INJ ONE (09:03)
[2021-04-03] MEDS ORDERED: MORPHINE SULFATE INJ 4 MG/ML INJ 1ML ONE (09:44)
[2021-04-03] MEDS ORDERED: HYDROMORPHONE 1MG/1ML INJ ONE (10:05)
[2021-04-03] MEDS: SODIUM CHLORIDE 0.9% 1000ML 1,000 ML IV SCH ×2 (10:45→16:45)
[2021-04-03] MEDS: METOPROLOL SUCCINATE 25 MG TAB XL PO SCH (11:39)
[2021-04-03] MEDS: MORPHINE SULFATE INJ 4 MG/ML INJ 1ML IV PRN ×2 (12:10→16:43)
[2021-04-03] MEDS ORDERED: LIDOCAINE HCL 2% LOCAL INJ 5 ML SDV VIAL INJ ONE (13:06)
[2021-04-03] MEDS ORDERED: DEXAMETHASONE SOD PHOS INJ 4 MG/ML SDV ONE (13:06)
[2021-04-03] MEDS ORDERED: SEVOFLURANE INHAL SOLN 250 ML PEN BTL ONE (13:06)
[2021-04-03] MEDS ORDERED: ONDANSETRON HCL INJ 2MG/ML 2ML 2 MG/ML VIAL ONE (13:06)
[2021-04-03] MEDS ORDERED: NEOSTIGMINE 1 MG/ML 10ML VIAL ONE (13:06)
[2021-04-03] MEDS ORDERED: PROPOFOL IV EMULSION 10 MG/ML 20 ML VIAL ONE (13:06)
[2021-04-03] MEDS ORDERED: GLYCOPYRROLATE INJ 0.2 MG/ML VIAL ONE (13:06)
[2021-04-03] MEDS ORDERED: ROCURONIUM BROMIDE 10 MG/ML 5ML VIAL IV ONE (13:06)
[2021-04-03] MEDS ORDERED: POVIDONE IODINE 0.05% 0.05 % ML PO ONE (13:06)
[2021-04-03] MEDS: FINASTERIDE 5 MG TAB PO SCH (20:39)
[2021-04-03] MEDS: TAMSULOSIN HCL 0.4 MG CAP PO SCH (20:39)
[2021-04-03] MEDS: ATORVASTATIN 20 MG TAB PO SCH (20:39)
[2021-04-04] MEDS: PIPERACILLIN/TAZOBACTAM 3.375 GM in SODIUM CHLORIDE 0.9% 50ML 50 ML IV SCH ×2 (00:10→05:42)
[2021-04-04] MEDS: HYDROCODONE/APAP 5MG-325MG TAB PO PRN ×2 (00:16→04:22)
[2021-04-04 00:35] VITALS: BP 120/69
[2021-04-04] MEDS: SODIUM CHLORIDE 0.9% 1000ML 1,000 ML IV SCH (04:00)
[2021-04-04 04:50] VITALS: BP 121/71
[2021-04-04] MEDS ORDERED: HYDROCODON-ACE1 EA11 PO (06:17)
[2021-04-04 07:16] VITALS: BP 113/69
[2021-04-04] MEDS: METOPROLOL SUCCINATE 25 MG TAB XL PO SCH (08:23)
[2021-04-04] MEDS: ASPIRIN 81 MG ENTERIC COATED PO SCH (08:25)
== END 2021-04-04 10:14 | disposition home or self-care (01) | DRG 419 ==
LOC: ER 05:29 → ERHOLD 08:20 → MED/SURG 12:52
PROVIDERS: ADMIT Family Medicine; ATTEND Family Medicine
PROC: 0FT44ZZ Resection of Gallbladder, Percutaneous Endoscopic Approach (ICD-10-PCS; principal; 2021-04-03 10:00)
DX: K80.12 Calculus of gallbladder with acute and chronic cholecystitis without obstruction (principal); I12.9 Hypertensive chronic kidney disease with stage 1 through stage 4 chronic kidney disease, or unspecified chronic kidney disease; I25.10 Atherosclerotic heart disease of native coronary artery without angina pectoris; I71.4 Abdominal aortic aneurysm, without rupture; N18.30 Chronic kidney disease, stage 3 unspecified; E78.5 Hyperlipidemia, unspecified; N40.0 Benign prostatic hyperplasia without lower urinary tract symptoms; E11.9 Type 2 diabetes mellitus without complications; K82.8 Other specified diseases of gallbladder; Z95.0 Presence of cardiac pacemaker; Z95.5 Presence of coronary angioplasty implant and graft; Z88.8 Allergy status to other drugs, medicaments and biological substances; Z82.49 Family history of ischemic heart disease and other diseases of the circulatory system; Z20.822 Contact with and (suspected) exposure to COVID-19; Z79.82 Long term (current) use of aspirin
CPT/HCPCS: 36415; 71045; 74174; 76705; 80053; 80061; 82150; 82550; 82553; 82948; 83690; 83735; 84484; 85025; 85610; 85730; 88304; 93005; 93306; 99284; J1100; J1170; J2001; J2175; J2270; J2405; J2543; J2710; J3010; J7030; J7050; Q9967; U0002

== ENCOUNTER → 2021-12-26 | Outpatient (CLI) | payer MEDICARE ==
[~2021-12-26] MED LIST changes: +ACETAMINOPHEN/CODEINE 300MG - 30MG TAB ONE; +HYDROCODON-ACE1 EA11 PO
[2021-12-26 09:45] LABS: HEMOGLOBIN 16.6 g/dL (14.0-18.0)
[2021-12-26 09:57] LABS: INR 0.95; PROTHROMBIN TIME 13.6 seconds (11.9-14.5)
[2021-12-26 09:58] LABS: PARTIAL THROMBOPLASTIN TIME 26.5 seconds (23.8-35.5)
[2021-12-26 10:03] LABS: CREATININE, SERUM 1.34 mg/dL (0.72-1.25)
== END ==
LOC: DX 09:19
PROVIDERS: ATTEND Family Medicine
DX: M51.14 Intervertebral disc disorders with radiculopathy, thoracic region (principal); M51.17 Intervertebral disc disorders with radiculopathy, lumbosacral region
CPT/HCPCS: 36415; 62304; 72132; 77003; 82565; 84520; 85014; 85049; 85610; 85730

== ENCOUNTER 2022-02-05 08:00 | Outpatient (RCR) | payer MEDICARE ==
[~2022-02-05 08:00] MED LIST changes: -ACETAMINOPHEN/CODEINE 300MG - 30MG TAB ONE
== END 2022-02-11 ==
LOC: PT 08:00
PROVIDERS: ATTEND Neurological Surgery
DX: M48.07 Spinal stenosis, lumbosacral region (principal)

== ENCOUNTER 2022-03-13 06:58 | Outpatient (RCR) | payer MEDICARE | END 2022-03-14 | LOC: PT 06:58 | PROVIDERS: ATTEND Neurological Surgery | DX: M54.50 Low back pain, unspecified (principal); M53.86 Other specified dorsopathies, lumbar region; M62.81 Muscle weakness (generalized) ==

== ENCOUNTER 2022-03-20 06:59 | Outpatient (RCR) | payer MEDICARE | END 2022-04-13 | LOC: PT 06:59 | PROVIDERS: ATTEND Neurological Surgery | DX: M54.50 Low back pain, unspecified (principal); M53.86 Other specified dorsopathies, lumbar region; M62.81 Muscle weakness (generalized) ==